=== PATIENT | female | born 1960 | race Caucasian/White ===

== ENCOUNTER → 2017-10-14 | Outpatient (CLI) | payer OTHER ==
--- NOTE | 2017-10-14 15:57 | RAD ---
DATE: 10/14/2017 EXAM: MAMMO LESLIE SCREENING BILATERAL HISTORY: Routine screening. COMPARISON: 01/06/2015 This study was interpreted with the benefit of Computerized Aided Detection (CAD). FINDINGS: The parenchymal pattern is stable. Bilateral breast densities appears stable. No new mass or malignant appearing microcalcifications are seen. The axillae are unremarkable. Breast Density: HETERO The breast parenchyma is heterogeneously dense, which could reduce sensitivity of mammography. Breast parenchyma level C. IMPRESSION: No mammographic features suspicious for malignancy are identified. BI-RADS CATEGORY: 2 BENIGN FINDING(S) RECOMMENDED FOLLOW-UP: 12M 12 MONTH FOLLOW-UP PQRS compliance statement: Patient information was entered into a reminder system with a target due date 10/14/2018 for the next mammogram. Mammography is a sensitive method for finding small breast cancers, but it does not detect them all and is not a substitute for careful clinical examination. A negative mammogram does not negate a clinically suspicious finding and should not result in delay in biopsying a clinically suspicious abnormality. "Our facility is accredited by the [employer] Mammography Program."
--- NOTE | 2017-10-15 09:41 | KCIC ---
MRI study of the right thigh without contrast Clinical indications: Right leg and thigh pain. Nodule of the proximal right femur area. COMPARISON: Sonogram performed at [facility] dated September 07, 2017. The sonogram demonstrated a subcutaneous hyperechoic solid nodule of the right side corresponding to the palpable lump. It measured 2 cm on that study. TECHNIQUE: Noncontrast MRI sequences of the right thigh was performed in the area of palpable lump. Palpable lump was marked with a skin marker as indicated by the patient. FINDINGS: No soft tissue mass is evident. In the area of the palpable lump, prominent subcutaneous fat is seen but no discrete lipomatous nodule is evident by MRI. However, sonographic study demonstrated a discrete hyperechoic nodule here. This is consistent with a lipoma. No soft tissue edema or abscess is seen here. There is edema of the gluteus dustin muscle and tendon at the level of the greater trochanter consistent with tendinosis and myositis here. This could be due to a contusion if there is history of trauma. No greater trochanteric bursitis is seen. No marrow infiltrative process or fracture is seen. There is mild degenerative spurring of the right hip joint. There is degenerative spurring of the medial and lateral tibiofemoral joint compartments of the right knee and the patellofemoral joint compartment of the right knee. Prominent Brown's cyst is seen. IMPRESSION: No discrete solid mass lesion is seen to correspond to the palpable lump. Based on the ultrasound finding, the palpable lump represents a lipoma. Edema of the gluteus dustin muscle and tendon at the level of greater trochanter consistent with tendinosis and myositis. This may be seen with soft tissue contusion if there is history of trauma.. No greater trochanteric bursitis is seen. No fracture or marrow infiltrative process is seen. Incidental note is made of osteoarthritis of the right hip and right knee and a prominent Brown's cyst measuring 8.5 cm in length. Electronically signed by: Navi Kyle MD (10/15/2017 9:38 AM) [facility]
== END | disposition home or self-care (01) ==
LOC: KCIC MRI 12:02
PROVIDERS: ATTEND General Practice
DX: Z12.31 Encounter for screening mammogram for malignant neoplasm of breast (principal); M16.11 Unilateral primary osteoarthritis, right hip; M71.21 Synovial cyst of popliteal space [Baker], right knee
CPT/HCPCS: 73718; 77063; G0202; 77067